=== PATIENT | female | born 1995 | race Two or more races ===

== ENCOUNTER 2022-10-22 11:51 | Emergency (ER) | payer OTHER ==
[~2022-10-22] VITALS: Ht 157.5 cm; Wt 75.7 kg
== END 2022-10-22 13:24 | disposition home or self-care (01) ==
LOC: ER 11:51
DX: S93.402A Sprain of unspecified ligament of left ankle, initial encounter (principal); X50.9XXA Other and unspecified overexertion or strenuous movements or postures, initial encounter; Y93.9 Activity, unspecified; Y92.9 Unspecified place or not applicable; Z88.2 Allergy status to sulfonamides; Z88.0 Allergy status to penicillin

== ENCOUNTER 2023-02-21 07:55 | Outpatient (CLI) | payer OTHER | END 2023-02-21 07:56 | disposition home or self-care (01) | LOC: LAB 07:55 | PROVIDERS: ATTEND Orthopaedic Surgery | DX: M85.9 Disorder of bone density and structure, unspecified (principal); E83.42 Hypomagnesemia; E56.1 Deficiency of vitamin K ==

== ENCOUNTER 2023-12-12 13:08 | Emergency (ER) | payer OTHER ==
[~2023-12-12] VITALS: Ht 157.5 cm; Wt 74.8 kg
[2023-12-12] MEDS ORDERED: OCELLA 3 MG-0.1 EACH PO (13:19)
[2023-12-12 16:04] LABS: HEMATOCRIT 39.3 % (36.0-45.00); HEMOGLOBIN 13.1 g/dL (12.0-15.00); MEAN CELL VOLUME 76.3 fL (80.00-100.00); MEAN CORPUSCULAR HEMOGLOBIN 25.5 pg (27.00-32.0); MEAN CORPUSCULAR HGB CONC 33.4 g/dl (32.0-36.0); PLATELET COUNT 372 K/uL (150-450); RED BLOOD COUNT 5.15 M/uL (4.00-6.00); RED CELL DISTRIBUTION WIDTH 14.1 % (11.5-14.5)
[2023-12-12] MEDS ORDERED: ZOVIRAX800 MG PO (17:04)
[2023-12-12] MEDS ORDERED: NEURONTIN300 MG PO (17:06)
== END 2023-12-12 17:17 | disposition home or self-care (01) ==
LOC: ER 13:09
PROVIDERS: Nurse Practitioner Family
DX: B02.9 Zoster without complications (principal)